=== PATIENT | female | born 1985 ===

== ENCOUNTER 2019-01-29 20:41 | Emergency (ER) | payer MEDICAID ==
[2019-01-29 20:57] VITALS: BP 139/87; PULSE 92; RESP 18
[2019-01-29] MEDS ORDERED: Lactated Ringer's 1,000 ML IV STA (21:31)
--- NOTE | 2019-01-29 22:05 | ED PDOC ---
HPI: Female Pain Time Seen by Provider: 01/29/19 21:01 Chief Complaint (Nursing): Female Genitourinary Chief Complaint (Provider): Vaginal Bleeding History Per: Patient History/Exam Limitations: no limitations Onset/Duration Of Symptoms: Days (x24 ) Current Symptoms Are (Timing): Still Present Quality Of Discomfort: denies: Cramping, "Pain" Additional Complaint(s): 33 year old female ( with 2 elective terminations) with no significant past medical history presents to the ED with vaginal bleeding for x24 days. Patient reports she has a normal period for x4 days on December 29. However on January 05, she started to bleed again and has been bleeding every day since. For the last 2 days, bleeding has been more severe. She has been changing her pad/tampon every hour. Patient has also been noticing larger clots. She also reports associated headaches that started with the bleeding, which have worsened over the last two days. Patient denies any nasal or severe rectal bleeding, but does report mild dental bleeding when she brushes her teeth. She has lightheadedness and fatigue but denies any abdominal cramping or pain. In the last month and a half, patient has lost about 30 lbs. Normally her period is every month, predictable and lasts only 3-4 days. Patient believes she had a tubal ligation and has not gotten since her last child. PMD: none provided Past Medical History Reviewed: Historical Data, Nursing Documentation, Vital Signs Vital Signs: Last Vital Signs Temp 98.4 F 01/29/19 20:55 Pulse 92 H 01/29/19 20:55 Resp 18 01/29/19 20:55 BP 139/87 01/29/19 20:55 Pulse Ox 99 01/29/19 20:55 - Medical History PMH: Gall Bladder Disease - Surgical History Surgical History: Cholecystectomy, - Family History Family History: States: Other Other Family History: secondary relatives with cancer - Social History Current smoker - smoking cessation education provided: No Ex-Smoker (has not smoked in the last 12 months): Yes (quit 4-5 months ago) Alcohol: Occasional Drugs: Denies - Home Medications Home Medications: Ambulatory Orders Medication Instructions Recorded Tranexamic Acid 1,300 mg PO TID #30 tablet 01/30/19 - Allergies Allergies/Adverse Reactions: Allergies Allergy/AdvReac Type Severity Reaction Status Date / Time No Known Allergies Allergy Verified 01/29/19 20:54 Review of Systems ROS Statement: Except As Marked, All Systems Reviewed And Found Negative Constitutional: Positive for: Other (fatigue) Cardiovascular: Positive for: Light Headedness Gastrointestinal: Positive for: Other (no rectal bleeding). Negative for: Abdominal Pain Genitourinary Female: Positive for: Vaginal Bleeding Neurological: Positive for: Headache Physical Exam - Reviewed Nursing Documentation Reviewed: Yes Vital Signs Reviewed: Yes - Physical Exam Appears: Positive for: Well, No Acute Distress Head Exam: Positive for: ATRAUMATIC, NORMOCEPHALIC Skin: Positive for: Warm, Dry Eye Exam: Positive for: EOMI, PERRL ENT: Negative for: Pharyngeal Erythema, Tonsillar Exudate Neck: Positive for: Painless ROM, Supple Cardiovascular/Chest: Positive for: Regular Rate, Rhythm. Negative for: Murmur Respiratory: Positive for: Normal Breath Sounds. Negative for: Respiratory Distress Gastrointestinal/Abdominal: Positive for: Normal Exam, Soft. Negative for: Tenderness, Mass, Guarding, Rebound Back: Positive for: Normal Inspection. Negative for: Decreased ROM Extremity: Positive for: Normal ROM. Negative for: Deformity Lymphatic: Negative for: Adenopathy Neurological/Psych: Positive for: Awake, Alert. Negative for: Motor/Sensory Deficits - Laboratory Results Result Diagrams: 01/29/19 23:05 01/29/19 23:05 - ECG O2 Sat by Pulse Oximetry: 99 (RA) Pulse Ox Interpretation: Normal Medical Decision Making Medical Decision Making: Time: 2100 Impression: abnormal vaginal bleeding Differentials include but are not limited to: fibroids, dysfunctional fibroids bleeding, dysfunctional uterine bleeding, thyroid disorder, anemia, coagulopathy. Plan: --Type and screen --CMP --TSH --U preg --U dip --CBC --PTT --PT/INR --Lactated Ringers --Acetaminophen --Ortho BP --US transvaginal Name: ZACARIAS ZHONG Exam Date: Jan 29, 2019 10:06:16 PM EDT Modality Type: SD\\US\\HI Description: US - PELVIC TRANSVAGINAL Gender: F Laterality: Not applicable : 89 Referring Physician: Sarah Smith EXAM: US Pelvis, Complete Transvaginal and Transabdominal COMPARISON: None provided. CLINICAL HISTORY: Heavy vaginal bleeding TECHNIQUE: Transvaginal and transabdominal pelvic ultrasound (complete) with image documentation. FINDINGS: ENDOMETRIUM: Normal thickness measuring 7.7 mm in AP dimension. UTERUS/CERVIX: The uterus is anteverted in position and normal in size measuring 8.1 x 4.5 x 4.9 cm in longitudinal, AP and transverse dimensions respectively. No uterine fibroid or other mass evident. RIGHT OVARY: Normal Doppler flow. No abnormal mass. A few tiny right ovarian follicles are present. Additionally, a 1.5 x 1.3 x 1.1 cm right paraovarian cyst is noted. LEFT OVARY: Normal Doppler flow. No abnormal mass. FREE FLUID: A small volume of free fluid is seen in the posterior cul-de-sac . IMPRESSION: 1. 1.5 x 1.3 cm right paraovarian cyst. 2. Several tiny right ovarian follicles are noted. 3. A small volume of free fluid is seen in the posterior cul-de-sac. Electronically signed on Jan 29, 2019 11:31:19 PM EDT by: Kevin Calderón M.D., M.B.A., Certified By [employer] Trained MRI and CT Specialist DW pt findings. Pt to be discharged with TXA 5 days and advised pharmacy innovation assistant followup. Return parameters discussed. ScribeAttestation: Documented byPrincess Iglesias, acting as a scribe for Sarah Smith MD. Provider ScribeAttestation: All medical record entries made by the Scribe were at my direction and personally dictated by me. I have reviewed the chart and agree that the record accurately reflects my personal performance of the history, physical exam, medical decision making, and the department course for this patient. I have also personally directed, reviewed, and agree with the discharge instructions and disposition. Disposition - Clinical Impression Clinical Impression: Menorrhagia - Disposition [facility] ([facility]LLOWUP WITH [facility] OR YOUR GYNCEOLOGIST NEXT WEEK FOR FURTHER EVALUATION) Disposition: Routine/Home Disposition Time: 00:00 Condition: STABLE Additional Instructions: DRINK PLENTY OF HYDRATING FLUIDS Prescriptions: Tranexamic Acid 1,300 mg PO TID #30 tablet Instructions: Heavy Periods (DC)
[2019-01-29 23:15] LABS: PROTHROMBIN TIME 11.3 Seconds (9.8-13.1)
[2019-01-29 23:17] LABS: PARTIAL THROMBOPLASTIN TIME 29.2 Seconds (25.6-37.1)
[2019-01-29 23:20] LABS: ALB/GLOB RATIO 1.2 (1.0-2.1); ALBUMIN 4.4 g/dL (3.5-5.0); BLOOD UREA NITROGEN 14 mg/dl (7-17); CALCIUM 9.5 mg/dL (8.4-10.2); GFR NON-AFRICAN AMERICAN > 60
[2019-01-29 23:52] LABS: ALT/SGPT 55 U/L (9-52); AST/SGOT 47 U/L (14-36)
[2019-01-29 23:55] LABS: BASO # 0.3 K/uL (0.0-0.2); BASO % 2.6 % (0.0-2.0); EOS # 0.3 K/uL (0.0-0.7); EOS % 2.5 % (0.0-4.0); HEMOGLOBIN 11.7 g/dL (12.0-16.0); LYMPH # 4.9 K/uL (1.0-4.3); LYMPH % 43.6 % (20.0-40.0); MEAN CELL VOLUME 90.7 fl (81.0-99.0); MEAN CORPUSCULAR HEMOGLOBIN 29.9 pg (27.0-31.0); MEAN PLATELET VOLUME 9.1 fl (7.2-11.7); MONO # 0.6 K/uL (0.0-0.8); MONO % 5.7 % (0.0-10.0); NEUT # 5.1 K/uL (1.8-7.0); NEUT % 45.6 % (50.0-75.0); NRBC % 0.1 % (0.0-0.0); RBC 3.91 Mil/uL (3.80-5.20); RED CELL DISTRIBUTION WIDTH 13.8 % (11.5-14.5); WHITE BLOOD COUNT 11.1 K/uL (4.8-10.8)
[2019-01-30 00:29] VITALS: TEMP 98
--- NOTE | 2019-01-30 17:17 | US ---
Date of service: 01/29/2019 HISTORY: Heavy vaginal bleed COMPARISON: None available. TECHNIQUE: Transvaginal sonographic evaluation of the pelvis performed. FINDINGS: UTERUS: Measures 8.1 x 4.5 x 4.9 cm. Anteverted. Normal in size and appearance. No fibroid or other mass lesion seen. ENDOMETRIUM: Measures 8.0 mm in diameter. Unremarkable. CERVIX: No cervical abnormality identified. RIGHT OVARY: Measures 3.2 x 2.1 x 1.9. There is a small paraovarian cyst measuring approximate 1.5 and 1.3 x 1.1 cm. Multiple follicular cysts are present. No solid mass. Normal flow. LEFT OVARY: Measures 2.3 x 1.5 x 2.0 cm. No solid mass. Normal flow. Multiple small follicular cysts are present FREE FLUID: Small amount of free fluid is present within the cul de sac OTHER FINDINGS: None. IMPRESSION: Small right para ovarian cyst measuring 1.5 cm in greatest dimension as detailed above.. Small amount of free fluid is present within the cul de sac.
[2019-01-30 18:43] VITALS: O2SAT 99
== END 2019-01-30 00:33 | disposition home or self-care (01) ==
LOC: H.ER 20:41
DX: N92.0 Excessive and frequent menstruation with regular cycle (principal); N83.201 Unspecified ovarian cyst, right side; Z87.891 Personal history of nicotine dependence
CPT/HCPCS: 76830; 80053; 84443; 85025; 85610; 85730; 86850; 86900; 96360; 99284; J7120